=== PATIENT | male | born 1955 | race Caucasian/White ===

== ENCOUNTER → 2016-06-29 | Outpatient (CLI) | payer OTHER ==
[~2016-06-29] MED LIST: ALPPOPS5 OP; ASCO1CAP3 PO; ASPI81TA28 PO; BISO5TAB3 PO; CHOL2000 PO; DORZ2SOL20 OP; FENO48TA9 PO; LATA0.5S OP; LOSA1TAB PO; MULT-506 PO; NAPR1TAB9 PO; PROB1CAP41 PO; [UNRECOGNIZED DRUG - CODE] OP; [UNRECOGNIZED DRUG - CODE] PO
[2016-06-29 16:53] LABS: BASO % 0.3 %; BASO ABS # 0.03 K/uL (0-0.2); COMPLETE YES; EOS % 2.2 %; HEMATOCRIT 44.8 % (42-52); IG% 0.2 %; LYMPH % 28.9 %; LYMPH ABS # 3.07 K/uL (1.2-3.4); MEAN CELL VOLUME 95.1 fL (80-100); MEAN CORPUSCULAR HGB CONC 35.7 g/dl (32-36); MEAN PLATELET VOLUME 11.7 fL (7.4-10.4); MONO % 11.4 %; PLATELET COUNT 174 K/uL (130-400); RED BLOOD COUNT 4.71 M/uL (4.7-6.1); WHITE BLOOD COUNT 10.64 K/uL (4.8-10.8)
[2016-06-29 17:02] LABS: URINE APPEARANCE CLEAR (CLEAR); URINE BILIRUBIN NEG (NEG); URINE COLOR YELLOW; URINE EPITHELIAL CELL AUTO 0-5 /lpf (0-5); URINE NITRITE NEG (NEG); URINE PH 7.5 (4.5-7.5); URINE SPECIFIC GRAVITY 1.017 (1.000-1.030); UROBILINOGEN POS (NEG)
[2016-06-29 17:05] LABS: MANUAL MICROSCOPIC REQUIRED? NO; REVIEW REQ? NO
[2016-06-29 17:12] LABS: ALT/SGPT 40 U/L (12-78); AST/SGOT 22 U/L (15-37); BLOOD UREA NITROGEN 14 mg/dl (7-18); BUN/CREATININE RATIO 11.4 (10-20); CALCIUM 8.7 mg/dl (8.5-10.1); CARBON DIOXIDE 26 mmol/L (21-32); CHLORIDE 108 mmol/L (98-107); CHOLESTEROL 151 mg/dl (0-200); GLUCOSE 91 mg/dl (70-99); POTASSIUM 4.2 mmol/L (3.5-5.1); SODIUM 143 mmol/L (136-145); URIC ACID 5.2 mg/dl (2.6-7.2)
[2016-06-29 17:15] LABS: ALB/GLOB RATIO 0.7 (0.9-2); ALKALINE PHOSPHATASE 107 U/L (45-117); CHOLESTEROL/HDL RATIO 4.4; HDL CHOLESTEROL 34 mg/dl; LDL CHOLESTEROL CALCULATED 70 mg/dl; TRIGLYCERIDES 235 mg/dl (0-150); VERY LOW DENSITY LIPOPROT CALC 47 mg/dl
[2016-06-29 17:17] LABS: URINE PROTIEN/CREAT RATIO 0.2 (0-0.2); URINE TOTAL PROTEIN 17.4 mg/dl (0-11.9)
[2016-06-30 05:55] LABS: ESTIMATED AVERAGE GLUCOSE 120 mg/dl; HA1C FLAG Normal (Normal)
[2016-07-03 15:16] LABS: ALBUMIN 3.6 G/DL (3.8-4.8); GAMMA GLOBULIN 0.3 G/DL (0.8-1.7); MONOCLONAL PROTEIN BAND 1 1.8 G/DL (NOT DETECTED); TOTAL PROTEIN 7.5 G/DL (6.2-8.3)
[2016-07-05 13:31] LABS: ALBUMIN % 67.26 %; ALPHA-2-GLOBULIN % 7.53 %; BETA GLOBULIN % 16.36 %; CREATININE UR 119 MG/DL (20-370); GAMMA GLOBULIN % 5.03 %
== END | disposition home or self-care (01) ==
LOC: C.LABCC 15:11
PROVIDERS: ATTEND Family Medicine
DX: N18.3 Chronic kidney disease, stage 3 (moderate) (principal); D47.2 Monoclonal gammopathy; E78.5 Hyperlipidemia, unspecified; R73.03 Prediabetes; M10.9 Gout, unspecified

== ENCOUNTER → 2016-08-24 | Outpatient (CLI) | payer OTHER ==
[~2016-08-24] MED LIST changes: +ACET-24 PO; +ALLO100T PO; +ASPEC325 PO; +RXC5 PO
== END | disposition home or self-care (01) ==
LOC: C.LABBC 10:24
PROVIDERS: ATTEND Family Medicine
DX: E55.9 Vitamin D deficiency, unspecified (principal)

== ENCOUNTER → 2016-09-20 | Outpatient (CLI) | payer OTHER ==
--- NOTE | 2016-09-20 13:20 | DIAGNOSTIC IMAGING REPORT ---
FLUOROSCOPICALLY GUIDED LEFT HIP INTRA-ARTICULAR STEROID INJECTION CLINICAL HISTORY: Left hip degenerative joint disease. Pain. FLUOROSCOPY TIME: 23 seconds. FINDINGS: 1 fluoroscopic image was obtained. The procedure, risks and benefits were discussed with the patient. The patient agreed to the procedure and informed written consent was obtained. The procedure was performed by Dr. Sauceda following a timeout. Skin overlying the left hip was prepped and draped in sterile fashion and local anesthesia was achieved with 1% lidocaine. Under intermittent fluoroscopic guidance, a 3 half-inch, 22-gauge spinal needle was directed into left hip joint. Positioning within the joint space was confirmed with injection of 1 cc of Optiray 300. At this time, 2 cc of Celestone and 8 cc of 0.5% Marcaine were injected into the left hip joint. The needle was removed. The patient tolerated the procedure well and no immediate complications were evident. IMPRESSION: Fluoroscopically guided left hip intra-articular injection of 2 cc of Celestone and 8 cc of 0.5% Marcaine. Electronically signed by: Flavio Sauceda M.D. 09/20/2016 1:19 PM Dictated Date/Time: 09/20/2016 1:18 PM
== END | disposition home or self-care (01) ==
LOC: C.RADBC 12:31
PROVIDERS: ATTEND Orthopaedic Surgery
DX: M16.52 Unilateral post-traumatic osteoarthritis, left hip (principal)

== ENCOUNTER 2017-02-09 04:51 | Inpatient (IN) | payer OTHER ==
[2017-01-25 08:30] VITALS: BMI 38.0
--- NOTE | 2017-01-25 09:17 | PAT Medication Instructions ---
Service Date Jan 25, 2017. Current Home Medication List Allopurinol Sodium (Aloprim), 1 TAB PO QAM Ascorbic Acid (Vitamin C), 1 CAP PO QAM Aspirin (Aspirin Ec), 81 MG PO QAM Bisoprolol Fumarate (Zebeta), 5 MG PO QAM Brimonidine Tartrate (Alphagan P), 1 DROPS OP BID Cholecalciferol (Vitamin D3), 1 CAP PO QAM Dorzolamide Hcl-Timolol Maleat (Cosopt Oph), 1 DROPS OP BID Fenofibrate (Tricor), 48 MG PO QAM Latanoprost (Xalatan 0.005% Oph Kimberly), 1 DROPS OP HS Losartan Potassium (Cozaar), 25 MG PO QAM Multivitamin (Multivitamin), 1 TAB PO QAM Naproxen (Aleve), 220 MG PO DAILY PRN for Pain Pilocarpine HCl (Pilocarpine HCl), 1 DROP OP TID Probiotic Product (Probiotic Daily), 1 CAN PO QAM Medication Instructions For Your Scheduled Surgery - Check with surgeon for instructions: Naproxen (Aleve), 220 MG PO DAILY PRN for Pain - Hold the following medications 24 hours prior to surgery: Fenofibrate (Tricor), 48 MG PO QAM - Hold the following medications the morning of surgery: Probiotic Product (Probiotic Daily), 1 CAN PO QAM Multivitamin (Multivitamin), 1 TAB PO QAM Losartan Potassium (Cozaar), 25 MG PO QAM Cholecalciferol (Vitamin D3), 1 CAP PO QAM Ascorbic Acid (Vitamin C), 1 CAP PO QAM - Take the following medications the morning of surgery with a sip of water: Pilocarpine HCl (Pilocarpine HCl), 1 DROP OP TID Dorzolamide Hcl-Timolol Maleat (Cosopt Oph), 1 DROPS OP BID Brimonidine Tartrate (Alphagan P), 1 DROPS OP BID Allopurinol Sodium (Aloprim), 1 TAB PO QAM Aspirin (Aspirin Ec), 81 MG PO QAM (okay to continue per surgeon) Bisoprolol Fumarate (Zebeta), 5 MG PO QAM - Take the following medications as scheduled the night before surgery: Pilocarpine HCl (Pilocarpine HCl), 1 DROP OP TID Latanoprost (Xalatan 0.005% Oph Kimberly), 1 DROPS OP HS Dorzolamide Hcl-Timolol Maleat (Cosopt Oph), 1 DROPS OP BID Brimonidine Tartrate (Alphagan P), 1 DROPS OP BID If you have any questions please call us at [phone] or [phone] or [phone]
--- NOTE | 2017-01-25 09:53 | DIAGNOSTIC IMAGING REPORT ---
CHEST PREADMISSION(PA/LAT) CLINICAL HISTORY: 61 years-old Male presenting with preoperative assessment. TECHNIQUE: PA and lateral views of the chest were obtained. COMPARISON: None. FINDINGS: Cardiomediastinal silhouette normal. Lungs and pleural spaces clear. Degenerative changes of the thoracic spine. Upper abdomen normal. IMPRESSION: 1. No acute cardiopulmonary disease. Electronically signed by: Gerhard Dunn M.D. 01/25/2017 9:51 AM Dictated Date/Time: 01/25/2017 9:51 AM
[2017-01-25 10:25] LABS: BASO % 0.5 %; BASO ABS # 0.05 K/uL (0-0.2); COMPLETE YES; EOS % 3.7 %; HEMATOCRIT 47.5 % (42-52); IG% 0.4 %; LYMPH % 29.4 %; LYMPH ABS # 2.93 K/uL (1.2-3.4); MEAN CELL VOLUME 97.7 fL (80-100); MEAN CORPUSCULAR HEMOGLOBIN 35.6 pg (25-34); MEAN CORPUSCULAR HGB CONC 36.4 g/dl (32-36); MEAN PLATELET VOLUME 11.5 fL (7.4-10.4); MONO % 11.7 %; NEUT % 54.3 %; PLATELET COUNT 189 K/uL (130-400); RED BLOOD COUNT 4.86 M/uL (4.7-6.1); WHITE BLOOD COUNT 9.95 K/uL (4.8-10.8)
--- NOTE | 2017-01-28 23:20 | HISTORY & PHYSICAL EXAMINATION ---
DATE OF ADMISSION: 02/09/2017 CHIEF COMPLAINT: Persistent and progressive left hip pain and discomfort. HISTORY OF PRESENT ILLNESS: The patient is a 61-year-old gentleman referred by my partner Dr. Arevalo for surgical treatment of his left hip. He has got several-year history of increasing left hip pain and discomfort that has gotten markedly worse over the past year. He has had multiple injections into his hip. The first injection helped significantly, the last one did not help much. He takes Aleve which takes the edge off at best. He has become more disabled by his hip pain. He cannot put his shoes and socks on. His hip has become stiff. He has nighttime pain. He would like to proceed with total hip replacement. PAST MEDICAL HISTORY: 1. Hypertension. 2. Elevated cholesterol. 3. Obesity with a BMI of 38.4. 4. Arthritis. 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 ALLERGIES: None. CURRENT MEDICINES: Include: 1. Allopurinol 500 mg. 2. Aspirin 81 mg a day. 3. Bisoprolol 5 mg a day. 4. Unspecified ophthalmic solution 1 drop twice a day. 5. Fenofibrate 48 mg a day. 6. Latanoprost ophthalmic solution 1 drop in each eye at bedtime. 7. Losartan 25 mg. 8. Multivitamin once a day. 9. Pilocarpine ophthalmic solution 3 times a day. 10. Probiotic oral tablet once a day. 11. Vitamin C once a day. SOCIAL HISTORY: A 61-year-old male. He is . He is from [place]. He does smoke and has about a [id number] history of smoking. FAMILY HISTORY: Noncontributory. REVIEW OF SYSTEMS: Negative for diabetes, neurologic problems, vascular problems or bleeding disorders. Denies any chest pain or shortness of breath. No history of DVT or PE. PHYSICAL EXAMINATION: GENERAL: Reveals a healthy, pleasant middle-aged male. He looks to be in pretty good health. HEENT: Benign. NECK: Supple. No lymphadenopathy. LUNGS: Clear to auscultation. HEART: Regular rate and rhythm. ABDOMEN: Soft, nontender, nondistended. EXTREMITIES: Grossly neurovascularly intact except as follows: Examination of the left hip reveals the patient walks with an antalgic gait. He limps on his left side. His leg lengths clinically appear pretty equal, maybe just a little short on the left side. He has got pain with any type of hip motion. Very limited hip motion, particularly the internal rotation which is -5 degrees. Negative straight leg raise. X-RAYS: X-rays of the left hip were reviewed. They show advanced left hip DJD. He has got complete loss of superior joint space. He has got cystic change in the femoral head. He has got osteophytes circumferentially around the femoral head and acetabulum. ASSESSMENT: A 61-year-old male with advanced left hip degenerative joint disease. He has failed conservative treatment and elected to have his hip fixed. He undoubtedly has some lumbar spondylosis which contributes to his pain as well. PLAN: We are going to take him to the operating room and do left total hip replacement. The risks and benefits of this procedure were explained to the patient including but not limited to DVT, PE, , infection, neurological injury, vascular injury, bleeding problem, pain, limited range of motion, stiffness, failure to relieve symptoms, incomplete relief of symptoms, need for further surgery in the future, leg length inequality, nerve palsy, dislocation, need for blood transfusion, etc. The patient understands and desires to proceed. Informed consent was obtained. He does have a smoking history. He has to try to quit smoking before surgery. We will have to likely use a patch during his hospitalization. As far as discharge plans, he is planning to be discharged home and using [facility] home health program. TRAVON
[2017-02-09] VITALS (9 sets, daily range): BP systolic 99–175; BP diastolic 62–86; PULSE 57–78; TEMP 36.3–36.7; O2SAT 97–100; Ht 170.2 cm; Wt 111.2 kg
[~2017-02-09] VITALS: Ht 170.2 cm; Wt 111.2 kg
[~2017-02-09 04:51] MED LIST changes: -ACET-24 PO; -ALLO100T PO; -ASPEC325 PO; -RXC5 PO
[2017-02-09] MEDS ORDERED: ALLO100T PO (05:47)
[2017-02-09] MEDS ORDERED: LACTATED RINGER'S 1000ML IV SCH (06:00)
[2017-02-09] MEDS ORDERED: SCOPOLAMINE 1.5 MG TDSY TD SCH (06:00)
[2017-02-09] MEDS ORDERED: LACTATED RINGER'S 1000ML 1,000 ML IV SCH (06:00)
[2017-02-09] MEDS ORDERED: ACETAMINOPHEN 500 MG TAB PO SCH (06:00)
[2017-02-09] MEDS ORDERED: FAMOTIDINE 20 MG TAB PO SCH (06:00)
[2017-02-09] MEDS ORDERED: CEFAZOLIN 2000MG IV PUSH 10 ML IV SCH (06:00)
[2017-02-09] MEDS ORDERED: METOCLOPRAMIDE HCL 10 MG TAB PO SCH (06:00)
[2017-02-09] MEDS ORDERED: GABAPENTIN 300 MG CAP PO SCH (06:00)
[2017-02-09] MEDS ORDERED: LACTATED RINGER'S 1000ML 500 ML IV ONE (06:00)
[2017-02-09] MEDS ORDERED: TRANEXAMIC ACID INJ 1,000 MG in SODIUM CHLORIDE 0.9% 100ML 100 ML IV SCH (06:00)
[2017-02-09] MEDS ORDERED: BUPIVACAINE 0.5 % 5 MG/1 ML PF 10ML VIAL ONE (06:19)
[2017-02-09] MEDS ORDERED: MIDAZOLAM HCL 1 MG/ML 2ML VIAL ONE (06:33)
[2017-02-09] MEDS ORDERED: FENTANYL CITRATE INJ 50 MCG/1 ML 2 ML VIAL ONE (06:33)
[2017-02-09] MEDS ORDERED: BUPIVACAINE/EPINEPHRINE 0.5% MPF 1:200,000 30 ML VIAL ONE (06:38)
[2017-02-09] MEDS ORDERED: BACITRACIN 50000 UNIT VIAL ONE (06:38)
--- NOTE | 2017-02-09 06:52 | History & Physical Bridge Note ---
H&P Re-Evaluation Bridge Note: I have examined the patient, reviewed the History & Physical and in the interval since the performance of the History & Physical I have noted the following changes of clinical significance: No changes noted
[2017-02-09] MEDS ORDERED: PROPOFOL IV EMULSION 10 MG/ML 20 ML VIAL IV ONE (07:48)
[2017-02-09] MEDS ORDERED: EpHEDrine SULFATE 50MG/5ML SYR ONE (07:48)
[2017-02-09] MEDS ORDERED: LIDOCAINE HCL 2% 2 ML VIAL (20MG/ML) ONE (07:48)
[2017-02-09] MEDS ORDERED: EpHEDrine SULFATE INJ 50 MG/ML AMP ONE (07:48)
[2017-02-09] MEDS ORDERED: PHENYLEPHRINE 100MCG/ML 5ML SYR ONE (07:48)
[2017-02-09] MEDS ORDERED: ONDANSETRON INJ 2 MG/ML 2 ML VIAL ONE (07:48)
[2017-02-09] MEDS ORDERED: FENTANYL CITRATE INJ 50 MCG/1 ML 2 ML VIAL IV PRN (08:15)
[2017-02-09] MEDS ORDERED: EpHEDrine SULFATE INJ 50 MG/ML AMP IV PRN (08:15)
[2017-02-09] MEDS ORDERED: ONDANSETRON INJ 2 MG/ML 2 ML VIAL IV PRN ×2 (08:15→08:45)
[2017-02-09] MEDS ORDERED: ATROPINE SULFATE 0.1 MG/ML 5ML SYR IV PRN (08:15)
--- NOTE | 2017-02-09 08:40 | [facility] Post Operative Brief Note ---
Immediate Operative Summary Operative Date Feb 09, 2017. Pre-Operative Diagnosis Left Hip, Degenerative Joint Disease Post-Operative Diagnosis Same as preoperative Procedure(s) Performed Left Total Hip Arthroplasty, Uncemented Surgeon Dr. Kam Yates Consumer Marketing Manager Surgeon(s) Aguila Bryant PA-C Estimated Blood Loss 200ml Findings Left Hip DJD Fluids (cc crystalloids) 1400 cc Specimens A.) Left Femoral Head Drains None Anesthesia Spinal Complication(s) None Disposition Recovery Room / PACU
[2017-02-09] MEDS ORDERED: MAGNESIUM HYDROXIDE SUSP 30 ML UDC PO PRN (08:45)
[2017-02-09] MEDS ORDERED: DiphenhydrAMINE HCL 50 MG/ML VIAL IV PRN (08:45)
[2017-02-09] MEDS ORDERED: BISACODYL 10 MG SUPP PR PRN (08:45)
[2017-02-09] MEDS ORDERED: ZOLPIDEM TARTRATE 5 MG TAB PO PRN (08:45)
[2017-02-09] MEDS ORDERED: METOCLOPRAMIDE HCL INJ 5 MG/ML 2 ML VIAL IV PRN (08:45)
[2017-02-09] MEDS ORDERED: OXYCODONE HCL IR 5 MG TAB (IMMEDIATE RELEASE) PO PRN (08:45)
[2017-02-09] MEDS ORDERED: ALUMINUM/MAGNESIUM/SIMETH (MAALOX MAX) 30 ML UDC PO PRN (08:45)
[2017-02-09] MEDS ORDERED: SILVER SULFADIAZINE 1% CR 50 GM JAR EXT PRN (08:45)
[2017-02-09] MEDS ORDERED: MoRPHine SULFATE 2 MG/ML CARP IV PRN (08:45)
[2017-02-09] MEDS ORDERED: TAMSULOSIN HCL 0.4 MG CAP PO PRN (08:45)
[2017-02-09] MEDS ORDERED: PROBIOTIC PRODUCT PO SCH (09:00)
[2017-02-09] MEDS ORDERED: MULTIVITAMIN TAB PO SCH (09:00)
--- NOTE | 2017-02-09 09:14 | OPERATIVE REPORT ---
DATE OF OPERATION: 02/09/2017 SURGEON: Kam Yates MD. MANAGER RELATIONSHIP: TEJAS Chiu. PREOPERATIVE DIAGNOSIS: Left hip degenerative joint disease. POSTOPERATIVE DIAGNOSIS: Left hip degenerative joint disease. PROCEDURE PERFORMED: Left uncemented ceramic on highly cross-linked polyethylene total hip arthroplasty. COMPLICATIONS: None. ESTIMATED BLOOD LOSS: 200 mL. FLUID REPLACEMENT: 1400 mL crystalloid fluid replacement. ANESTHESIA: Spinal. DRAINS: None. SPECIMENS: Left femoral head sent for pathology. OPERATIVE INDICATIONS: The patient is a 61-year-old gentleman referred by my partner Dr. Arevalo for surgical treatment of his left hip. He has a fairly long history of left hip pain and discomfort that has gotten significantly worse over the past year. He has been through extensive conservative treatment including oral medicines and injections without relief. He elected to proceed with total hip arthroplasty. OPERATIVE FINDINGS: Operative findings revealed advanced left hip DJD. He had grade 4 [id number] disease of the femoral head and acetabulum. He had osteophytes around the femoral head and neck as well as the acetabulum. Moderate size joint effusion. OPERATIVE IMPLANTS: Operative implants consisted of: 1. A Biomet G7 size 56 mm acetabular shell. 2. A 6.5 cancellous acetabular screws, 1 at 35 mm length and 1 at 25 mm length. 3. An apex hole eliminator. 4. A highly cross-linked polyethylene liner with a 56 mm outer diameter and 36 mm inner diameter. 5. A DePuy size 15 small AML femoral stem. 6. A +5/36 mm ceramic articular ball. OPERATIVE PROCEDURE: The patient taken to the operating room, identified and placed on the operating table in supine position. All contact areas were appropriately padded. IV antibiotics were provided by anesthesia team. A spinal anesthetic had been implemented in the holding area. Edmonds catheter was placed in sterile fashion. The patient was then placed in the right lateral decubitus position. An axillary roll was placed. Stlberg hip positioner was used for positioning. Left hip and leg were then prepped and draped in the usual sterile fashion. A posterolateral approach to the left hip was then performed through a curvilinear incision centered over the greater trochanter. Sharp dissection was carried out through the subcutaneous tissues down to the level of the IT band and gluteal fascia. The IT band and gluteal fascia were then incised longitudinally in line with the skin incision. The underlying greater trochanteric bursa was excised. The piriformis and external rotators were taken off the posterior aspect of the hip joint capsule. Great care was taken throughout the procedure to protect the sciatic nerve at all times. Posterior capsulotomy was then performed leaving a large flap for later repair. It was internally rotated and dislocated. Femoral neck osteotomy cut was then made with final cut about 11 mm above the lesser trochanter. Femoral head was removed and sent for pathology. The femur was retracted anteriorly. Attention was then drawn to the acetabulum. The acetabular labrum was excised. The pulvinar fat was excised. Sequential reaming of the acetabulum was then performed beginning with a size 49 and progressing up to 55. A 56 mm Biomet G7 acetabular shell was then placed in about 40 degrees of lateral opening and 20 degrees of anteversion. It was fixed with two 6.5 cancellous acetabular screws. Some osteophytes were taken off anteriorly, inferiorly, and posteriorly. A trial liner was placed. Attention was then drawn to the femur. The proximal femur was entered with a cookie cutter followed by a canal finder and lateralizing reamer. Sequential reaming of the femur was then performed beginning with a size 10 and progressing up to a 40.5. We got excellent chatter. I then broached beginning with a size 10.5 small broach and progressing up to 15 small. I did not feel like I could get the large in. We elected to stay with a small implant. Calcar reamer was used to smoothen off the calcar. The final cut was about 11 mm above the lesser trochanter. We then trialed the hip and the +5/36 mm articular ball was fully stable in full extension and external rotation and flexion to 90 degrees, internal rotation to 60+ degrees. Leg lengths seemed equal. We elected to place these implants. All trial implants were removed. An apex hole eliminator was placed. A highly cross-linked polyethylene liner was placed. A 15 small stature AML femoral stem was impacted in position. I did ream partway down the canal with a 15 reamer as it was extremely tight initially. A +5/36 mm ceramic articular ball was placed. Hip was located and once again found to be stable. Attention was then drawn toward closing. The wound was irrigated with copious amounts of pulsatile lavage solution. I did inject locally with 60 mL of 0.5% Marcaine with epinephrine. The posterior capsule and external rotators were then repaired through drill holes in the posterior trochanter with #2 Ti-Cron suture. The IT band and gluteal fascia were then closed with #1 PDS suture in running fashion. The subcutaneous tissue was then closed with 2 layers with the deep layer #1 Vicryl suture and subcutaneous tissues with 2-0 Dexon suture in a buried interrupted fashion. Skin was closed skin olga. Leg was then cleaned and dried and a sterile dressing of Xeroform, 4 x 4, sterile ABD pad and foam tape was applied. The patient then transferred to the recovery room in stable condition. The patient tolerated the procedure without complications. All needle and sponge counts were correct at the end of the operation. I attest to the content of the Intraoperative Record and any orders documented therein. Any exception s are noted below.
--- NOTE | 2017-02-09 09:22 | Anesthesiology Progress Note ---
Anesthesia Post Op Note Date & Time Feb 09, 2017 at 09:21 Vital Signs Pain Intensity: 0 Vital Signs Past 12 Hours Date Time Temp Pulse Resp B/P (MAP) Pulse Ox O2 Delivery O2 Flow Rate FiO2 02/09/17 09:15 67 15 115/56 98 Nasal Cannula 2 02/09/17 09:05 36.3 65 16 114/47 98 Nasal Cannula 2 02/09/17 08:55 68 15 133/67 97 Nasal Cannula 2 02/09/17 08:45 65 10 105/47 98 Nasal Cannula 2 02/09/17 08:35 36.1 68 14 107/55 97 Nasal Cannula 2 02/09/17 05:48 36.5 78 20 175/86 98 Room Air Notes Mental Status: alert / awake / arousable, participated in evaluation Pt Amnestic to Procedure: Yes Nausea / Vomiting: adequately controlled Pain: adequately controlled Airway Patency, RR, SpO2: stable & adequate BP & HR: stable & adequate Hydration State: stable & adequate Neuraxial Anesthesia: was administered, sensory block is resolving Anesthetic Complications: no major complications apparent
--- NOTE | 2017-02-09 09:27 | DIAGNOSTIC IMAGING REPORT ---
L PELVIS/UNILATERAL HIP 1 VIEW HISTORY: 61 years-old Male IN PACU - A/P PELVIS and LATERAL HIP INCLUDING ALL OF IMPLANT status post left hip arthroplasty COMPARISON: Pelvis and left hip radiographs 11/23/2016 TECHNIQUE: AP view the pelvis with frog-leg view of the left hip FINDINGS: Mild to moderate right hip osteoarthritis. No fracture or dislocation identified. Status post left hip total arthroplasty without malalignment or periprosthetic fracture. Expected postsurgical soft tissue swelling and deep tissue air with skin loga overlying the surgical site. IMPRESSION: Status post left total hip arthroplasty without complication identified. The above report was generated using voice recognition software. It may contain grammatical, syntax or spelling errors. Electronically signed by: Shawn Cline M.D. 02/09/2017 9:25 AM Dictated Date/Time: 02/09/2017 9:23 AM
[2017-02-09] MEDS: D5W AND 1/2NSS + 20MEQ KCL 1,000 ML IV SCH ×3 (10:12→23:17)
[2017-02-09] MEDS: NICOTINE 14 MG/24 HR TDSY TD SCH (10:30)
[2017-02-09] MEDS: LOSARTAN POTASSIUM 25 MG TAB PO SCH (10:30)
[2017-02-09] MEDS: BISOPROLOL FUMARATE 5 MG TAB PO SCH (10:30)
[2017-02-09] MEDS: BRIMONIDINE TARTRATE-P 0.15% 5 ML BTL OP SCH ×2 (11:07→20:53)
[2017-02-09] MEDS: DORZOLAMIDE/TIMOLOL 22.3/6.8MG/ML 10 ML BTL OP SCH ×2 (11:07→20:58)
[2017-02-09] MEDS: PANTOprazole SOD 40 MG TAB PO SCH (11:12)
[2017-02-09] MEDS: ASCORBIC ACID 500 MG TAB PO SCH (11:13)
[2017-02-09] MEDS: CHOLECALCIFEROL 1000 INTER.UNIT TAB PO SCH (11:14)
[2017-02-09] MEDS: ALLOPURINOL 100 MG TAB PO SCH (11:45)
[2017-02-09] MEDS: FENOFIBRATE 48 MG TAB PO SCH (11:46)
[2017-02-09] MEDS: FERROUS GLUCONATE 324 MG TAB PO SCH ×2 (13:18→19:06)
--- NOTE | 2017-02-09 14:09 | PROGRESS NOTE ---
DATE: 02/09/2017 DATE: 02/09/2017 SUBJECTIVE: A 61-year-old gentleman postop from a left hip replacement. He is doing well. Really not having any pain yet. No chest pain or shortness of breath. Not feeling dizzy or lightheaded. OBJECTIVE: VITAL SIGNS: Temperature is 36.3. Vital signs stable. PHYSICAL EXAMINATION: GENERAL: Reveals a healthy, pleasant, middle-aged male. He is sitting up in bed and looks pretty comfortable. LUNGS: Clear to auscultation. HEART: Regular rate and rhythm. ABDOMEN: Soft, nontender, nondistended. EXTREMITY EXAMINATION: Grossly neurovascularly intact except as follows: Examination of left hip and leg reveals leg lengths to be equal. Hip is located. Dressing is clean, dry and intact. His thigh is soft and supple. He can dorsiflex and plantarflex his foot appropriately. He is neurologically intact. X-RAYS: X-rays of the left hip from recovery room reviewed. It shows a left uncemented total hip arthroplasty. Components looked to be in good position. No signs of problems. ASSESSMENT: A 61-year-old gentleman postop from a left hip replacement, doing well. His pain controlled. He is neurologically intact. PLAN: 1. DVT prophylaxis including thigh-high TEDs, SCDs, and aspirin twice a day. 2. PT/OT. Weightbear as tolerated. Left total hip protocol. 3. Pain control. Doing well with current pain regimen. 4. IV antibiotics x24 hours. 5. Disposition. Plan to discharge to home with some home health once adequately recovered.
[2017-02-09] MEDS: KETOROLAC TROMETHAMINE 30 MG/ML VIAL IV. SCH ×2 (14:13→20:56)
[2017-02-09] MEDS: PILOCARPINE HCL 2% OP SOLN 15 ML BTL OP SCH ×2 (14:14→21:53)
[2017-02-09] MEDS: CHECK SCOPOLAMINE PATCH PLACEMENT SCH ×2 (16:00→23:30)
[2017-02-09] MEDS ORDERED: TRANEXAMIC ACID INJ 1,000 MG in SODIUM CHLORIDE 0.9% 100ML 100 ML IV ONE (16:00)
[2017-02-09] MEDS: CEFAZOLIN IV 2,000 MG in SYRINGE 0 ML IV SCH ×2 (16:29→23:30)
[2017-02-09] MEDS: TAPENTADOL ER 50 MG TABCR PO SCH (20:54)
[2017-02-09] MEDS: ASPIRIN 325 MG ECTAB PO SCH (20:55)
[2017-02-09] MEDS: LATANOPROST 0.005% OP SOLN 2.5 ML BTL OP SCH (21:52)
[2017-02-09] MEDS: SENNA 8.6 MG TAB PO SCH (22:21)
[2017-02-09] MEDS: DOCUSATE SODIUM 100 MG CAP PO SCH (22:21)
[2017-02-09] MEDS: ACETAMINOPHEN 500 MG TAB PO SCH (22:22)
[2017-02-10] MEDS: KETOROLAC TROMETHAMINE 30 MG/ML VIAL IV. SCH ×4 (02:12→20:34)
[2017-02-10 03:33] VITALS: BP 143/72; PULSE 72; TEMP 37; O2SAT 97
[2017-02-10] MEDS: ACETAMINOPHEN 500 MG TAB PO SCH ×3 (05:46→21:38)
[2017-02-10] MEDS: D5W AND 1/2NSS + 20MEQ KCL 1,000 ML IV SCH (05:46)
[2017-02-10 07:30] VITALS: BP 149/79; PULSE 68; TEMP 36.6; O2SAT 97
[2017-02-10] MEDS: CHECK SCOPOLAMINE PATCH PLACEMENT SCH ×3 (07:44→23:44)
[2017-02-10] MEDS: CEFAZOLIN IV 2,000 MG in SYRINGE 0 ML IV SCH (08:09)
--- NOTE | 2017-02-10 08:12 | PROGRESS NOTE ---
DATE: 02/10/2017 SUBJECTIVE: A 61-year-old gentleman postop day 1 from a left hip replacement. He is doing well. He describes some incisional pain in that hip. No thigh pain. No chest pain or shortness of breath. Not feeling dizzy or lightheaded. OBJECTIVE: VITAL SIGNS: Temperature 36.6. Vital signs stable. Mild hypertension. GENERAL: Reveals a healthy pleasant, middle-aged male. He is sitting up in bed, looks pretty comfortable. LUNGS: Clear to auscultation. HEART: Has regular rate and rhythm. ABDOMEN: Soft, nontender, nondistended. EXTREMITIES: Grossly neurovascularly intact except as follows: Examination of left hip and leg reveals the dressing to be clean, dry and intact. Hip is located. Leg lengths were equal. LABORATORY DATA: Labs are pending. ASSESSMENT: A 61-year-old gentleman postop day 1 from left total hip replacement, doing pretty well. Some incisional type pain which is to be expected. Little high blood pressure. We will get him back on his blood pressure regimen today. PLAN: 1. DVT prophylaxis including thigh-high TEDs, SCDs, and aspirin twice a day. 2. PT/OT. Weight bear as tolerated. Left total hip protocol. 3. Pain control, doing well with current pain regimen. 4. Medical management/hypertension. We will get him back on his blood pressure medicines today. 5. Disposition. He is hoping to be discharged to home with home health once adequately recovered.
[2017-02-10] MEDS: NICOTINE 14 MG/24 HR TDSY TD SCH (08:23)
[2017-02-10] MEDS: BRIMONIDINE TARTRATE-P 0.15% 5 ML BTL OP SCH ×2 (08:24→21:35)
[2017-02-10] MEDS: DORZOLAMIDE/TIMOLOL 22.3/6.8MG/ML 10 ML BTL OP SCH ×2 (08:24→21:35)
[2017-02-10] MEDS: PILOCARPINE HCL 2% OP SOLN 15 ML BTL OP SCH ×3 (08:24→21:37)
[2017-02-10] MEDS: TAPENTADOL ER 50 MG TABCR PO SCH ×2 (08:24→21:35)
[2017-02-10] MEDS: ASCORBIC ACID 500 MG TAB PO SCH (08:25)
[2017-02-10] MEDS: ALLOPURINOL 100 MG TAB PO SCH (08:25)
[2017-02-10] MEDS: CHOLECALCIFEROL 1000 INTER.UNIT TAB PO SCH (08:25)
[2017-02-10] MEDS: FENOFIBRATE 48 MG TAB PO SCH (08:25)
[2017-02-10] MEDS: DOCUSATE SODIUM 100 MG CAP PO SCH ×2 (08:25→21:36)
[2017-02-10] MEDS: PANTOprazole SOD 40 MG TAB PO SCH (08:25)
[2017-02-10] MEDS: FERROUS GLUCONATE 324 MG TAB PO SCH ×3 (08:26→18:07)
[2017-02-10] MEDS: LOSARTAN POTASSIUM 25 MG TAB PO SCH (08:26)
[2017-02-10] MEDS: BISOPROLOL FUMARATE 5 MG TAB PO SCH (08:26)
[2017-02-10] MEDS: ASPIRIN 325 MG ECTAB PO SCH ×2 (08:26→21:36)
[2017-02-10] MEDS: MULTIVITAMIN TAB PO SCH (08:26)
[2017-02-10 09:16] LABS: BASO % 0.2 %; BASO ABS # 0.02 K/uL (0-0.2); COMPLETE YES; EOS % 2.1 %; HEMATOCRIT 39.4 % (42-52); IG% 0.4 %; LYMPH % 17.9 %; LYMPH ABS # 2.29 K/uL (1.2-3.4); MEAN CELL VOLUME 98.7 fL (80-100); MEAN CORPUSCULAR HEMOGLOBIN 35.3 pg (25-34); MEAN CORPUSCULAR HGB CONC 35.8 g/dl (32-36); MEAN PLATELET VOLUME 11.4 fL (7.4-10.4); MONO % 14.4 %; PLATELET COUNT 132 K/uL (130-400); RED BLOOD COUNT 3.99 M/uL (4.7-6.1); WHITE BLOOD COUNT 12.82 K/uL (4.8-10.8)
[2017-02-10 09:49] LABS: BUN/CREATININE RATIO 10.8 (10-20); CALCIUM 8.6 mg/dl (8.5-10.1); CREATININE 1.44 mg/dl (0.60-1.40); POTASSIUM 4.8 mmol/L (3.5-5.1)
[2017-02-10 11:46] VITALS: BP 130/74; PULSE 61; TEMP 36.6; O2SAT 97
[2017-02-10] MEDS ORDERED: NURSING VERBAL MED ORDER ONE (12:30)
[2017-02-10 16:29] VITALS: BP 150/79; PULSE 67; TEMP 36.5; O2SAT 96
[2017-02-10] MEDS ORDERED: ASPEC325 PO (20:52)
[2017-02-10] MEDS ORDERED: ACET-24 PO (20:52)
[2017-02-10] MEDS ORDERED: RXC5 PO (20:52)
--- NOTE | 2017-02-10 20:55 | Discharge Instructions ---
Discharge Instructions Date of Service Feb 10, 2017. Admission Reason for Admission: Left Hip Degenerative Joint Disease Discharge Discharge Diagnosis / Problem: Left Hip Replacement Discharge Goals Goal(s): Decrease discomfort, Improve function, Increase independence, Improve disease control, Therapeutic intervention Activity Recommendations Activity Limitations: per Instructions/Follow-up section (Total Hip Precautions ) Weightbearing Status: Left weightbearing . Instructions / Follow-Up Instructions / Follow-Up ACTIVITY RECOMMENDATIONS: Physical Therapy: * Aggressive physical therapy is not usually needed. You will learn to take care of yourself safely and walk. * Follow the "Hip Precautions Instructions." * In some cases, the social studies teacher at the hospital will arrange to have a therapist come to your house for the first couple of weeks to help you learn these skills. * You need to practice on your own or with the help of a family member as needed. * When you learn these skills, most of the therapy can be done on your own. Home Exercise: * You were shown a series of exercises in the hospital. Do these exercises three to four times each day including the exercises you were shown in physical therapy. Walking: * Get up and walk several times each day. For the first four weeks, try not to stand or walk for more than one hour at a time. If you do stand or walk for more than one hour, you will not hurt anything, but your leg will likely swell. * As you feel comfortable, you may change from the walker or crutches to a cane and then to independent walking. MEDICATIONS: New Medicine: * You will likely be taking one or more of these medicines: 1. Oxycodone - Take, as directed, when you need it, every four to six hours to control your pain. 2. Aspirin - Thins your blood to lessen the chance of forming a blood clot. * The most common side effects of pain medicine and iron are nausea and constipation. If nausea or constipation is too much of a problem or if you have any questions about your new medicines or doses, call [facility] at [phone]. We will try to help you manage these issues. VERY IMPORTANT TO READ AND REVIEW" Pain: * The immediate post-operative period after hip replacement surgery is often quite painful. * You are given a prescription for pain medicine. You should take it, as directed, when you need it, especially before physical therapy and before going to bed. Pain that interferes with sleep is very common and can last several months. * You will likely need pain medicine for the first two to four weeks. It will not stop all of the pain. The pain will lessen and as you feel better, you may change to milder pain medicine such as Tylenol. * The most common side effects of pain medicine are nausea and constipation, so don't take more than you need. SPECIAL CARE INSTRUCTIONS: TEDs/Elastic Stockings: * The white elastic stockings help limit swelling and prevent blood clots from forming in your legs. The more you wear them, the more they work. * Wear them for six weeks. Prevention of Infection: * Take antibiotics one hour before any dental cleaning, dental work, urological procedure, gastrointestinal procedure or any invasive surgery in order to prevent your new joint from getting infected. * You may get the antibiotics from the doctor performing the procedure or you may call our office at before and we will call in a prescription to the pharmacy of your choice. Things to Watch For: * Drainage from the incision site that occurs more than one week after your surgery. * Severely increased leg pain or swelling. * Increased redness at the incision site. * Fever above 102 degrees Fahrenheit. * Unusual chest pain or shortness of breath. * Unusual pain or burning with urination. Call [facility] at with any of the above problems or if you have any questions about your medicines or recovery. FOLLOW UP VISIT: Make an appointment to see your doctor for approximately two weeks after surgery for a progress check and staple removal by calling the office at . Current Hospital Diet Patient's current hospital diet: Regular Diet Discharge Diet Recommended Diet: Regular Diet Procedures Procedures Performed: Left Total Hip Arthroplasty, Uncemented Pending Studies Studies pending at discharge: no Medical Emergencies . Who to Call and When: Medical Emergencies: If at any time you feel your situation is an emergency, please call [phone] immediately. . Non-Emergent Contact Non-Emergency issues call your: Surgeon . "Provider Documentation" section prepared by Kam Yates. . VTE Core Measure Inpt VTE Proph given/why not?: Other Anticoagulation, T.E.D. Stockings, SCD's
[2017-02-10] MEDS: LATANOPROST 0.005% OP SOLN 2.5 ML BTL OP SCH (21:35)
[2017-02-10] MEDS: SENNA 8.6 MG TAB PO SCH (21:36)
[2017-02-10 23:10] VITALS: BP 144/74; PULSE 76; TEMP 36.7; O2SAT 95
[2017-02-11] MEDS: KETOROLAC TROMETHAMINE 30 MG/ML VIAL IV. SCH ×2 (01:56→09:04)
[2017-02-11] MEDS: ACETAMINOPHEN 500 MG TAB PO SCH (05:40)
[2017-02-11] MEDS: CHECK SCOPOLAMINE PATCH PLACEMENT SCH (08:00)
[2017-02-11 08:34] VITALS: BP 156/81; PULSE 70; TEMP 37; O2SAT 98
--- NOTE | 2017-02-11 08:45 | PROGRESS NOTE ---
DATE: 02/11/2017 SUBJECTIVE: A 61-year-old gentleman postop day #2 from a left total hip replacement. He is doing well. Pain is very well controlled. Therapy went well. He denies any chest pain or shortness of breath. Not feeling dizzy or lightheaded. OBJECTIVE: VITAL SIGNS: Temperature 36.7. Vital signs stable. GENERAL: Physical examination reveals a healthy, pleasant, middle-aged male. He is walking around with a walker quite well. He stands well as well at bedside. EXTREMITIES: Examination of the left hip reveals the wound to be clean, dry and intact. No significant drainage. Fairly mild swelling. Leg lengths were equal. Hip is located. He is neurologically intact. ASSESSMENT: A 61-year-old gentleman postop day #2 from a left total hip replacement, doing well. Pain is controlled. Hip is located. He is neurologically intact. PLAN: 1. DVT prophylaxis including thigh-high TEDs, SCDs, and aspirin twice a day. 2. PT/OT. Weightbear as tolerated. Left total hip protocol. 3. Pain control. Doing well with current pain regimen. 4. Disposition: Plan to discharge to home with some home health once adequately recovered.
[2017-02-11] MEDS: NICOTINE 14 MG/24 HR TDSY TD SCH (09:00)
[2017-02-11] MEDS: FERROUS GLUCONATE 324 MG TAB PO SCH (09:05)
[2017-02-11] MEDS: PILOCARPINE HCL 2% OP SOLN 15 ML BTL OP SCH (09:06)
[2017-02-11] MEDS: BRIMONIDINE TARTRATE-P 0.15% 5 ML BTL OP SCH (09:06)
[2017-02-11] MEDS: DORZOLAMIDE/TIMOLOL 22.3/6.8MG/ML 10 ML BTL OP SCH (09:06)
[2017-02-11] MEDS: ASPIRIN 325 MG ECTAB PO SCH (09:07)
[2017-02-11] MEDS: MULTIVITAMIN TAB PO SCH (09:07)
[2017-02-11] MEDS: BISOPROLOL FUMARATE 5 MG TAB PO SCH (09:07)
[2017-02-11] MEDS: DOCUSATE SODIUM 100 MG CAP PO SCH (09:07)
[2017-02-11] MEDS: LOSARTAN POTASSIUM 25 MG TAB PO SCH (09:07)
[2017-02-11] MEDS: PANTOprazole SOD 40 MG TAB PO SCH (09:07)
[2017-02-11] MEDS: CHOLECALCIFEROL 1000 INTER.UNIT TAB PO SCH (09:08)
[2017-02-11] MEDS: ASCORBIC ACID 500 MG TAB PO SCH (09:08)
[2017-02-11] MEDS: FENOFIBRATE 48 MG TAB PO SCH (09:08)
[2017-02-11] MEDS: ALLOPURINOL 100 MG TAB PO SCH (09:09)
[2017-02-11] MEDS: TAPENTADOL ER 50 MG TABCR PO SCH (09:12)
[2017-02-11 10:31] VITALS: BP 156/81; PULSE 70; TEMP 37; O2SAT 98
== END 2017-02-11 11:28 | disposition home health service (06) | DRG 470 ==
LOC: C.ACU 04:51 → C.3E 06:40 → ENRESERV 08:54
PROVIDERS: ADMIT Orthopaedic Surgery Sports Medicine; ATTEND Orthopaedic Surgery Sports Medicine
PROC: 0SRB04A Replacement of Left Hip Joint with Ceramic on Polyethylene Synthetic Substitute, Uncemented, Open Approach (ICD-10-PCS; principal; 2017-02-09 07:00)
DX: M16.12 Unilateral primary osteoarthritis, left hip (principal); I10 Essential (primary) hypertension; E78.00 Pure hypercholesterolemia, unspecified; E66.9 Obesity, unspecified; Z68.38 Body mass index [BMI] 38.0-38.9, adult; F17.200 Nicotine dependence, unspecified, uncomplicated; M10.9 Gout, unspecified; Z94.7 Corneal transplant status; Z79.82 Long term (current) use of aspirin; Z79.899 Other long term (current) drug therapy

== ENCOUNTER → 2017-07-27 | Outpatient (CLI) | payer OTHER ==
[~2017-07-27] MED LIST changes: +ACET-24 PO; +ALLO100T PO; +ASPEC325 PO; -ASPI81TA28 PO; +RXC5 PO; -[UNRECOGNIZED DRUG - CODE] PO
[2017-07-27 11:33] LABS: HEMOGLOBIN A1C 6.1 % (4.5-5.6)
[2017-07-27 15:04] LABS: ALBUMIN 3.1 gm/dl (3.4-5.0); ALT/SGPT 55 U/L (12-78); BLOOD UREA NITROGEN 18 mg/dl (7-18); CALCIUM 8.9 mg/dl (8.5-10.1); CARBON DIOXIDE 23 mmol/L (21-32); CHOLESTEROL 143 mg/dl (0-200); GLUCOSE 136 mg/dl (70-99); POTASSIUM 4.4 mmol/L (3.5-5.1); SODIUM 137 mmol/L (136-145)
[2017-07-27 15:09] LABS: ALKALINE PHOSPHATASE 88 U/L (45-117); AST/SGOT 32 U/L (15-37); LDL CHOLESTEROL CALCULATED 81 mg/dl; TOTAL PROTEIN 7.9 gm/dl (6.4-8.2)
== END | disposition home or self-care (01) ==
LOC: C.LABBC 09:19
PROVIDERS: ATTEND Nurse Practitioner Adult Health
DX: R73.03 Prediabetes (principal); N18.3 Chronic kidney disease, stage 3 (moderate); E78.5 Hyperlipidemia, unspecified; E55.9 Vitamin D deficiency, unspecified; Z12.5 Encounter for screening for malignant neoplasm of prostate